=== PATIENT | female | born 1945 | race Caucasian/White ===

== ENCOUNTER → 2017-03-05 | Outpatient (CLI) | payer MEDICARE, OTHER ==
--- NOTE | 2017-03-05 12:39 | REP ---
Clinical: Lung screening. Nicotine dependence. Comparison: 11/07/2014 Technique: Axial low-dose noncontrast images from the thoracic inlet to the upper abdomen using lung screening technique. Findings: The lung [place] are well-aerated. New apical scarring is appreciated (right greater than left). Chronic subtle "tree in bud" area of opacity and plate-like scarring in the basilar right upper lobe remains stable when compared to 11/07/2014. No new consolidation, significant nodule or mass lesion is appreciated. No pleural effusion/reaction or pneumothorax. Tracheobronchial tree is patent. Mediastinum demonstrates mild atherosclerotic changes of the coronary arteries without cardiomegaly. Impression: Lung-RADS category I. Stable chronic changes are appreciated unchanged compared to 11/07/2014. No nodule or suspicious abnormality. Signed by Manohar Garcia MD 03/05/2017 12:30 P
== END ==
LOC: M RAD 11:29
PROVIDERS: ATTEND Internal Medicine Pulmonary Disease
DX: Z12.2 Encounter for screening for malignant neoplasm of respiratory organs (principal); Z87.891 Personal history of nicotine dependence; Z12.31 Encounter for screening mammogram for malignant neoplasm of breast; Z78.0 Asymptomatic menopausal state; Z92.89 Personal history of other medical treatment
CPT/HCPCS: G0202; G0297

== ENCOUNTER → 2017-03-05 | Outpatient (CLI) | payer MEDICARE, OTHER ==
--- NOTE | 2017-03-05 13:52 | REPMRS ---
Patient History The patient states she had a clinical breast exam in 2016.Patient is postmenopausal and has history of other cancer at age 63. Family history of prostate cancer in maternal grandfather at age 50 or over, breast cancer in maternal cousin at age 50 or over, and prostate cancer in brother at age 50 or over. Benign stereotactic core biopsy of the right breast, March 26, 2011. Digital Mammo Screening [place]: March 05, 2017 - Exam #: [id number] Bilateral CC and MLO view(s) were taken. Technologist: Rosa Schaefer, Technologist Prior study comparison: April 09, 2015, digital woman screen mammo, performed at [facility]. April 06, 2014, digital woman screen mammo, performed at [facility]. March 23, 2013, digital woman screen mammo, performed at [facility]. FINDINGS: There are scattered fibroglandular densities. There has been no change in the appearance of the mammogram from the prior studies. There is a mild amount of scattered fibroglandular density which is fairly symmetric. There is no interval development of dominant mass, architectural distortion, or clustered microcalcification suggestive of malignancy. ASSESSMENT: BI-RADS/ACR category 1 mammogram. Negative. Recommendation Routine screening mammogram in 1 year (for women over age 40). This mammogram was interpreted with the aid of an FDA-approved computer-aided dectection system. Electronically Signed By: Howard Franklin MD 03/05/17 [id number]
== END ==
LOC: M RAD 11:34
PROVIDERS: ATTEND Physician Assistant
DX: Z12.31 Encounter for screening mammogram for malignant neoplasm of breast (principal); Z78.0 Asymptomatic menopausal state; Z92.89 Personal history of other medical treatment

== ENCOUNTER → 2018-01-28 | Outpatient (CLI) | payer MEDICARE, OTHER | LOC: M RAD 11:10 | DX: R91.8 Other nonspecific abnormal finding of lung field (principal); J84.10 Pulmonary fibrosis, unspecified | CPT/HCPCS: 71250 ==

== ENCOUNTER → 2018-02-23 | Outpatient (CLI) | payer MEDICARE, OTHER | LOC: M WHC 11:08 | DX: M85.80 Other specified disorders of bone density and structure, unspecified site (principal); Z01.419 Encounter for gynecological examination (general) (routine) without abnormal findings (principal); Z78.0 Asymptomatic menopausal state; Z12.12 Encounter for screening for malignant neoplasm of rectum | CPT/HCPCS: 77080 ==

== ENCOUNTER 2018-02-26 16:28 | Inpatient (IN) | payer MEDICARE, OTHER ==
[2018-02-26 17:53] LABS: HEMATOCRIT 39.1 % (36.0-47.0); MEAN CORPUSCULAR HEMOGLOBIN 32.7 pg (27.0-33.0); MEAN CORPUSCULAR HGB CONC 33.2 g/dl (32.0-36.5); MEAN CORPUSCULAR VOLUME 98.2 fl (80.0-96.0); PLATELET COUNT, AUTOMATED 186 10^3/uL (150-450); RED BLOOD COUNT 3.98 10^6/uL (4.00-5.40); RED CELL DISTRIBUTION WIDTH 13.2 % (11.5-14.5); WHITE BLOOD COUNT 8.4 10^3/uL (4.0-10.0)
[2018-02-26 18:19] LABS: ANION GAP 10 MEQ/L (8-16); BLOOD UREA NITROGEN 16 MG/DL (7-18); CALCIUM LEVEL 8.6 MG/DL (8.8-10.2); CARBON DIOXIDE LEVEL 24 MEQ/L (21-32); CHLORIDE LEVEL 110 MEQ/L (98-107); CREATININE FOR GFR 0.86 MG/DL (0.55-1.30); GLOMERULAR FILTRATION RATE > 60.0 (>39); GLUCOSE, FASTING 150 MG/DL (70-100); SODIUM LEVEL 144 MEQ/L (136-145)
[2018-02-26] MEDS: NS 1,000 ML IV (18:45)
[2018-02-26] MEDS: MORPHINE 2 MG/ML 1ML SYRINGE (J2270) IV ×2 (18:46→22:36)
[2018-02-26] MEDS: CARVedilol 3.125 MG TAB PO ×2 (21:00→23:00)
[2018-02-26] MEDS: SYMBICORT 160/4.5MCG INHALER 6GM INH (21:42)
[2018-02-26] MEDS ORDERED: PREVNAR 13 VACCINE SYRINGE (CPT CODE:90670) IM (23:45)
[2018-02-27] MEDS: MORPHINE 4 MG/ML 1ML VIAL/SYRINGE (J2270) IV (02:04)
[2018-02-27] MEDS: NS 1,000 ML IV ×2 (06:09→18:39)
[2018-02-27] MEDS: TIOTROPIUM INHALER/CAPSULE (SPIRIVA) INH (07:38)
[2018-02-27] MEDS: SYMBICORT 160/4.5MCG INHALER 6GM INH ×2 (07:38→19:38)
[2018-02-27 08:14] LABS: ANION GAP 8 MEQ/L (8-16); BLOOD UREA NITROGEN 11 MG/DL (7-18); CALCIUM LEVEL 7.8 MG/DL (8.8-10.2); CARBON DIOXIDE LEVEL 26 MEQ/L (21-32); CHLORIDE LEVEL 112 MEQ/L (98-107); CREATININE FOR GFR 0.76 MG/DL (0.55-1.30); GLOMERULAR FILTRATION RATE > 60.0 (>39); GLUCOSE, FASTING 129 MG/DL (70-100); POTASSIUM SERUM 3.8 MEQ/L (3.5-5.1); SODIUM LEVEL 146 MEQ/L (136-145)
[2018-02-27] MEDS: CARVedilol 6.25 MG TAB PO ×2 (09:38→20:59)
[2018-02-27] MEDS ORDERED: MIDAZOLAM INJ 2 MG/2 ML VIAL (J2250) As Ordered ×2 (10:05→10:55)
[2018-02-27] MEDS ORDERED: fentaNYL 100 MCG/2 ML INJECTION (J3010) As Ordered ×2 (10:05→10:56)
[2018-02-27] MEDS ORDERED: dexameTHASONE 4 MG/ML 1ML VIAL (J1100) As Ordered (10:46)
[2018-02-27] MEDS ORDERED: ONDANSETRON 4MG/2ML VIAL (J2405) As Ordered (10:53)
[2018-02-27] MEDS ORDERED: LIDOCAINE 2% INJ 100 MG/5 ML SDV (FOR ANES.) As Ordered (10:53)
[2018-02-27] MEDS ORDERED: PROPOFOL 200 MG/20 ML VIAL As Ordered (10:53)
[2018-02-27] MEDS ORDERED: KETOROLAC 60 MG/2 ML VIAL (J1885) As Ordered (10:56)
[2018-02-27] MEDS: MIDAZOLAM INJ 2 MG/2 ML VIAL (J2250) IV (12:00)
[2018-02-27] MEDS: fentaNYL 100 MCG/2 ML INJECTION (J3010) IV (12:00)
[2018-02-27] MEDS: LR 1,000 ML IV (12:45)
[2018-02-27] MEDS ORDERED: fentaNYL 100 MCG/2 ML INJECTION (J3010) IV (12:45)
[2018-02-27] MEDS ORDERED: traMADol 50 MG TAB PO (12:45)
[2018-02-27] MEDS ORDERED: ONDANSETRON 4MG/2ML VIAL (J2405) IV (12:45)
[2018-02-27] MEDS ORDERED: ROPIvacaine 0.5% 30 ML INJECTION (J2795 PER 1MG) (13:34)
[2018-02-27] MEDS ORDERED: dexameTHASONE 10 MG/1 ML VIAL PRES.FREE (J1100) (13:34)
[2018-02-27] MEDS: MONTELUKAST 10 MG TAB PO (20:57)
[2018-02-27] MEDS: traMADol 50 MG TAB PO (20:58)
[2018-02-27] MEDS: ACETAMINOPHEN TAB 650MG DOSE (2X325MG) PO (20:58)
[2018-02-27] MEDS: FLUoxetine 10 MG CAP PO (20:59)
[2018-02-27] MEDS: FAMOTIDINE 20 MG TAB PO (20:59)
[2018-02-28] MEDS: SYMBICORT 160/4.5MCG INHALER 6GM INH (07:17)
[2018-02-28] MEDS: TIOTROPIUM INHALER/CAPSULE (SPIRIVA) INH (07:17)
[2018-02-28] MEDS: traMADol 50 MG TAB PO (10:14)
[2018-02-28] MEDS: CARVedilol 6.25 MG TAB PO (10:17)
[2018-02-28] MEDS: ASPIRIN 325 MG TAB PO (10:17)
== END 2018-02-28 11:45 | disposition home or self-care (01) | DRG 494 ==
LOC: M MS5PR 23:50 → M ED 16:28 → M ED INP 22:51
PROC: 0QSK04Z Reposition Left Fibula with Internal Fixation Device, Open Approach (ICD-10-PCS; principal; 2018-02-27 10:36)
PROC: 0QSH04Z Reposition Left Tibia with Internal Fixation Device, Open Approach (ICD-10-PCS; 2018-02-27 10:36)
DX: S82.842A Displaced bimalleolar fracture of left lower leg, initial encounter for closed fracture (principal); I10 Essential (primary) hypertension; J44.9 Chronic obstructive pulmonary disease, unspecified; E66.9 Obesity, unspecified; E78.5 Hyperlipidemia, unspecified; J30.2 Other seasonal allergic rhinitis; G47.33 Obstructive sleep apnea (adult) (pediatric); Z87.442 Personal history of urinary calculi; Z85.118 Personal history of other malignant neoplasm of bronchus and lung; W10.8XXA Fall (on) (from) other stairs and steps, initial encounter; Y92.838 Other recreation area as the place of occurrence of the external cause; Y93.01 Activity, walking, marching and hiking; Z90.2 Acquired absence of lung [part of]; Z79.82 Long term (current) use of aspirin; Z79.899 Other long term (current) drug therapy; Z87.891 Personal history of nicotine dependence; Z79.51 Long term (current) use of inhaled steroids

== ENCOUNTER → 2019-01-03 | Outpatient (CLI) | payer MEDICARE, OTHER ==
[~2019-01-03] MED LIST: ALBU17IN2 INH; ALLE180T33 PO; ASPI81TA85 PO; ATELTAB PO; BAYE325T12 PO; CARV12.5 PO; CARV6.25 PO; CELE1CAP9 PO; CENTCHW4 PO; DEXI60CA2 PO; GARL10004 PO; LIVA2TAB PO; PROZ10CA7 PO; SING10TA32 PO; SYMB16INH INH; TIOT18INH INH; TRAM50TA2 PO; VITA100066 PO; VITA500T PO; VITMTA PO; ZANT300T9 PO
--- NOTE | 2019-01-03 14:17 | REP ---
MRI LEFT SHOULDER: TECHNIQUE: Axial T2 fat sat, gradient echo, sagittal oblique T2 fat sat, coronal oblique T1, T2 fat sat. Supraspinatus and subscapularis tendons demonstrate mild diffuse ill-defined high signal on T2-weighted images compatible with tendinopathy/tendonitis. There is a partial undersurface tear of the anterior supraspinatus tendon. No full thickness rotator cuff tear is seen. There are mild hypertrophic degenerative changes of the acromioclavicular joint with downward sloping of the acromion. Acromion is type 1. Biceps tendon is within the bicipital groove with no tenosynovitis. There is no Hill-Sach's deformity. The deltoid muscle demonstrates no abnormal signal. There is fraying of the biceps labral complex. There is diffuse fraying of the superior labrum as well as the posterior labrum. No paralabral cyst is seen. Mild subchondral cystic changes are seen in the superolateral humeral head. Tiny amount of fluid is seen in subacromial/subdeltoid bursae. IMPRESSION: Mild supraspinatus and subscapularis tendinopathy/tendonitis. There is a partial undersurface tear of the anterior supraspinatus tendon. Mild hypertrophic degenerative changes of acromioclavicular joint with downward sloping of the acromion, which is type 1. There is fraying of the biceps labral complex. There is also diffuse fraying of the superior labrum and posterior labrum. Tiny amount of fluid is seen in the subacromial/subdeltoid bursae. Electronically Signed by Bean Naik MD 01/04/2019 09:59 A
== END ==
LOC: M RAD 11:21
PROVIDERS: ATTEND Orthopaedic Surgery Sports Medicine
DX: M19.012 Primary osteoarthritis, left shoulder (principal)

== ENCOUNTER → 2019-02-21 | Outpatient (CLI) | payer MEDICARE, OTHER ==
[~2019-02-21] MED LIST changes: -ALBU17IN2 INH; +ASPI81TA26 PO; +PLAV1TAB2 PO; +PRAL1INJ SC; +PROV108A INH
--- NOTE | 2019-02-21 17:57 | REP ---
CT of the chest without IV contrast: Comparison is 01/28/2018. The patient has history of lung carcinoma and left upper lobectomy . There are surgical clips in the left hilus. The small peribronchovascular nodules noted anteriorly in the right upper lobe previously have resolved, compatible with transient inflammatory change. The focal density noted in the left upper lung previously has resolved, compatible with transient infiltrate. There is thickening of the minor fissure. This is unchanged dating to 03/05/2017 , likely, pleural fibrosis. There are no acute infiltrates or pleural effusions. There are no new lung masses or nodules. There is no mediastinal lymph node enlargement. There are enlarged left axillary nodes, however, they have normal fatty kaylee and are unchanged from 03/05/2017, likely normal variant. In the upper abdomen there is no adrenal mass. The visualized unenhanced hepatic parenchyma is homogeneous. The gallbladder is unremarkable. There are pancreatic calcifications, possibly from prior pancreatitis. The stomach is distended with ingested content. Impression: There are no lung nodules or masses. The previous right upper lobe lung nodules have resolved, compatible with transient inflammatory change. The previous left upper lung nodule has resolved, compatible with transient infiltrate. There is chronic thickening of the minor fissure compatible with fibrosis. There are stable enlarged left axillary nodes containing fatty kaylee, likely normal variant. Electronically Signed by Bean Luis MD 02/21/2019 05:48 P
== END ==
LOC: M RAD 13:29
PROVIDERS: ATTEND Internal Medicine Pulmonary Disease
DX: R91.8 Other nonspecific abnormal finding of lung field (principal)

== ENCOUNTER 2019-02-24 20:07 | Emergency (ER) | payer MEDICARE, OTHER ==
[~2019-02-24] VITALS: Ht 152.4 cm; Wt 83.6 kg
[~2019-02-24 20:07] MED LIST changes: -ASPI81TA26 PO; -PLAV1TAB2 PO; -PRAL1INJ SC
[2019-02-24] MEDS ORDERED: NITROGLYCERIN 2% OINT 1 GM *U/D* PKT TOP ONE (20:30)
[2019-02-24] MEDS ORDERED: GI COCKTAIL 50ML BTL(HYOSCYAMINE/MAALOX/LIDOCAINE VISCOUS)(1:3:1) PO ONE (20:30)
[2019-02-24] MEDS ORDERED: ONDANSETRON 4MG/2ML VIAL (J2405) As Ordered ONE (20:41)
[2019-02-24] MEDS ORDERED: ONDANSETRON 4MG/2ML VIAL (J2405) IV ONE (20:45)
[2019-02-24 21:24] LABS: BASO # 0.1 10^3/uL (0.0-0.2); BASO % 0.6 % (0.0-1.0); EOS # 0.3 10^3/uL (0.0-0.50); HEMOGLOBIN 12.8 g/dl (12.0-15.5); LYMPH # 2.5 10^3/uL (1.5-4.5); LYMPH % 29.5 % (24.0-44.0); MEAN CORPUSCULAR HGB CONC 32.8 g/dl (32.0-36.5); MEAN CORPUSCULAR VOLUME 100.5 fl (80.0-96.0); MONO # 0.6 10^3/uL (0.0-0.8); MONO % 6.9 % (0.0-5.0); NEUTROPHILS % 59.5 % (36.0-66.0); PLATELET COUNT, AUTOMATED 193 10^3/uL (150-450); RED BLOOD COUNT 3.88 10^6/uL (4.00-5.40); WHITE BLOOD COUNT 8.4 10^3/uL (4.0-10.0)
--- NOTE | 2019-02-24 21:33 | ECGEPIP ---
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
[2019-02-24 21:34] LABS: INR 1.03; PROTHROMBIN TIME 13.2 SECONDS (11.8-14.0)
[2019-02-24 21:35] LABS: PARTIAL THROMBOPLASTIN TIME 26.1 SECONDS (25.0-38.4)
[2019-02-24 21:37] LABS: D-DIMER QUANT 2430.72 ng/ml (<500)
[2019-02-24] MEDS: MORPHINE 2 MG/ML 1ML SYRINGE (J2270) IV PRN ×2 (21:48→23:16)
[2019-02-24 21:53] LABS: ALBUMIN 3.5 GM/DL (3.2-5.2); ALT/SGPT 22 U/L (12-78); BILIRUBIN,DIRECT 0.2 MG/DL (0.0-0.2); BILIRUBIN,TOTAL 0.5 MG/DL (0.2-1.0); BLOOD UREA NITROGEN 13 MG/DL (7-18); CARBON DIOXIDE LEVEL 29 MEQ/L (21-32); CHLORIDE LEVEL 105 MEQ/L (98-107); CK-MB VALUE MASS 1.6 NG/ML (<3.6); CPK CREATINE PHOSPHOKINASE 94 U/L (26-192); CREATININE FOR GFR 0.78 MG/DL (0.55-1.30); FREE T4 0.98 NG/DL (0.76-1.46); GLOMERULAR FILTRATION RATE > 60.0 (>39); GLUCOSE, FASTING 159 MG/DL (70-100); LIPASE 90 U/L (73-393); NT-PRO BNP 134 PG/ML (<125); POTASSIUM SERUM 4.1 MEQ/L (3.5-5.1); SODIUM LEVEL 143 MEQ/L (136-145); TOTAL PROTEIN 6.8 GM/DL (6.4-8.2); TROPONIN I 0.61 NG/ML (< 0.10)
[2019-02-24] MEDS ORDERED: ISOVUE-370 76% 100ML VIAL (Q9967) As Ordered ONE (22:17)
[2019-02-24 23:59] LABS: CK-MB VALUE MASS 3.2 NG/ML (<3.6); MB/CK RELATIVE INDEX 3.05 (< OR =4); TROPONIN I 1.06 NG/ML (< 0.10)
--- NOTE | 2019-02-25 00:27 | REPVR ---
EXAM: CT Abdomen and Pelvis With Contrast EXAM DATE/TIME: 02/24/2019 10:51 PM CLINICAL HISTORY: 73 years old, female; Vomiting; Abdominal pain; Generalized; Additional info: Vomiting/abd pain TECHNIQUE: Imaging protocol: Computed tomography of the abdomen and pelvis with intravenous contrast. Radiation optimization: All CT scans at this facility use at least one of these dose optimization techniques: automated exposure control; mA and/or kV adjustment per patient size (includes targeted exams where dose is matched to clinical indication); or iterative reconstruction. Contrast material: ISOVUE 370; Contrast volume: 100 ml; Contrast route: IV; COMPARISON: No relevant prior studies available. FINDINGS: Liver: Diffuse fatty infiltration of liver with areas of focal fatty sparing. Gallbladder and bile ducts: Normal. No calcified stones. No ductal dilation. Pancreas: Normal. No ductal dilation. Spleen: Normal. No splenomegaly. Adrenals: Normal. No mass. Kidneys and ureters: Normal. No hydronephrosis. Stomach and bowel: Normal. No obstruction. No mucosal thickening. Appendix: No evidence of appendicitis. Intraperitoneal space: Normal. No free air. No significant fluid collection. Vasculature: Atherosclerosis. Pelvic varices. No abdominal aortic aneurysm. Lymph nodes: Normal. No enlarged lymph nodes. Bladder: Unremarkable as visualized. Reproductive: Unremarkable as visualized. Bones/joints: No acute fracture. No dislocation. Soft tissues: Unremarkable. IMPRESSION: Diffuse fatty infiltration of liver with areas of focal fatty sparing. No acute findings. Electronically signed by: Catherine Reyes On 02/25/2019 00:27:09 AM
--- NOTE | 2019-02-25 00:37 | REPVR ---
EXAM: CT Angiography Chest With Contrast EXAM DATE/TIME: 02/24/2019 10:51 PM CLINICAL HISTORY: 73 years old, female; Chest pain; Type not specified TECHNIQUE: Imaging protocol: Computed tomographic angiography of the chest with intravenous contrast. 3D rendering: MIP reconstructed images were created and reviewed. Radiation optimization: All CT scans at this facility use at least one of these dose optimization techniques: automated exposure control; mA and/or kV adjustment per patient size (includes targeted exams where dose is matched to clinical indication); or iterative reconstruction. Contrast material: ISOVUE 370; Contrast volume: 100 ml; Contrast route: IV; COMPARISON: CT Chest without contrast 02/21/2019 2:02 PM FINDINGS: Pulmonary arteries: Normal. No pulmonary emboli. Aorta: Unremarkable. No aortic aneurysm. No aortic dissection. Thyroid: Unremarkable. Lungs: Mild tree in bud appearance in the right upper lobe may represent pneumonitis. Mild ground glass densities bilaterally likely mild edema. No focal consolidation. The patient has history of lung carcinoma and left upper lobectomy with mild mediastinum shift to the left, stable. There are surgical clips in the left hilus. 3 mm nodule in the right upper lobe. 3.4 mm nodule in the left lung base, stable. Followup in 3 months is recommended. Pleural space: There is thickening of the minor fissure, stable, likely, pleural fibrosis. . No pneumothorax. No pleural effusion. Heart: Unremarkable. No cardiomegaly. No pericardial effusion. Diaphragm: Elevation of right hemidiaphragm. Lymph nodes: Unremarkable. No enlarged lymph nodes. Bones/joints: Degenerative changes. Diffuse demineralization of the bones. No acute fracture. Soft tissues: Unremarkable. IMPRESSION: No evidence of pulmonary embolism. Mild tree in bud appearance in the right upper lobe may represent pneumonitis. Mild ground glass densities bilaterally likely mild edema. No focal consolidation. 3 mm nodule in the right upper lobe. 3.4 mm nodule in the left lung base, stable. Followup in 3 months is recommended. There is thickening of the minor fissure, stable, likely, pleural fibrosis. Electronically signed by: Catherine Reyes On 02/25/2019 00:37:17 AM
[2019-02-25] MEDS ORDERED: HEPARIN DRIP 25,000 UNITS in APPROPRIATE DILUENT 1 EA IV SCH (00:48)
[2019-02-25] MEDS ORDERED: HEPARIN SOD (PORCINE) 5000 UNITS/ML VIAL IV ONE (01:00)
[2019-02-25] MEDS ORDERED: NITROGLYCERIN 2% OINT 1 GM *U/D* PKT TOP ONE (01:00)
[2019-02-25] MEDS ORDERED: CLOPIDOGREL 300 MG TAB (PLAVIX) PO STA (01:14)
[2019-02-25] MEDS: METOPROLOL 5 MG/5 ML VIAL IV SCH ×3 (01:20→01:38)
[2019-02-25 01:38] VITALS: BP 127/67
[2019-02-25 01:57] VITALS: BP 133/65
--- NOTE | 2019-02-25 07:55 | REP ---
Portable chest, 08:46 p.m., single AP view with the patient sitting: Comparison is a chest CT of 01/28/[address] of 02/21/2019. The. The patient is a history of lung carcinoma and left upper lobectomy. There are left hilar/suprahilar surgical clips. These are unchanged. There is a chronic parenchymal scar in the right mid lung, unchanged. Lung [place] otherwise clear. Cardiac size is normal. The right hilus, mediastinum and skeletal structures are otherwise unremarkable. Impression: There are no acute cardiopulmonary findings. There is a chronic parenchymal scar in the right mid lung. There are surgical clips in the left breast /suprahilar area. Electronically Signed by Bean Luis MD 02/25/2019 07:47 A
--- NOTE | 2019-02-25 08:21 | ECGEPIP ---
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
== END 2019-02-25 02:06 | disposition short-term general hospital (02) ==
LOC: M ED 20:07
DX: I21.4 Non-ST elevation (NSTEMI) myocardial infarction (principal); I11.9 Hypertensive heart disease without heart failure; E78.5 Hyperlipidemia, unspecified; J44.9 Chronic obstructive pulmonary disease, unspecified; G47.33 Obstructive sleep apnea (adult) (pediatric); Z87.891 Personal history of nicotine dependence; Z79.899 Other long term (current) drug therapy; Z79.82 Long term (current) use of aspirin
CPT/HCPCS: 71045; 71275; 74177; 80048; 80076; 82550; 82553; 83690; 83880; 84439; 84443; 84484; 85025; 85379; 85610; 85730; 86140; 87040; 93005; 93041; 94760; 96374; 96375; 96376; 99285; J2270; J2405; Q9967

== ENCOUNTER → 2019-03-04 | Outpatient (CLI) | payer MEDICARE, OTHER ==
--- NOTE | 2019-03-04 14:12 | REP ---
BILATERAL MAMMOGRAM WITH 3D TOMOSYNTHESIS: Family history of breast cancer over age 50 in a maternal cousin. [facility] lifetime risk of breast cancer 5.0%. COMPARISON: 03/05/2017 as well as other prior exams. Mild scattered fibroglandular tissue is again seen bilaterally. A new 4 mm well circumscribed nodule is seen in the inferolateral left breast. No other new mass or clustered microcalcifications are seen. A clip is again see in the upper outer quadrant of the right breast from a prior benign stereotactic biopsy in 2010. IMPRESSION: BIRADS 0: BI-RADS/ACR category 0 mammogram, Incomplete: Need additional imaging evaluation and/or prior mammograms for comparison. ACR 0 incomplete. New 4 mm well circumscribed nodule inferolateral left breast. Recommend spot compression views and ultrasound to further evaluate. This mammogram was interpreted with the aid of an FDA-approved computer-aided detection system. A. Negative x-ray reports should not delay biopsy if a dominant or clinically suspicious mass is present. B. Four to eight percent of cancers are not identified by x-ray. C. Adenosis and dense breasts may obscure an underlying neoplasm. The patient states she/he had a clinical breast exam in February 2019. The patient letter being requested is M0
== END ==
LOC: M WHC 11:15
PROVIDERS: ATTEND Nurse Practitioner Family
DX: Z12.31 Encounter for screening mammogram for malignant neoplasm of breast (principal); N63.20 Unspecified lump in the left breast, unspecified quadrant
CPT/HCPCS: 77063; 77067; G0463

== ENCOUNTER → 2019-03-15 | Outpatient (CLI) | payer MEDICARE, OTHER ==
[~2019-03-15] MED LIST changes: +ASPI81TA26 PO; +PLAV1TAB2 PO; +PRAL1INJ SC
--- NOTE | 2019-03-15 14:16 | REP ---
DIAGNOSTIC MAMMOGRAM OF THE LEFT BREAST WITH LEFT BREAST ULTRASOUND: Multiple spot compression views left breast performed and correlated with the recent mammogram of 03/04/2019 which showed a possible new 4 mm nodule laterally in the left breast. Today's spot compression views confirm the presence of a fairly well circumscribed 4 mm nodule laterally in the left breast. Real-time sonographic evaluation of the lateral left breast demonstrates a hypoechoic nodule at the 3-o'clock position. There is internal blood flow with Doppler evaluation. Therefore, this appears to be solid. IMPRESSION: BIRADS 4: BI-RADS/ACR category 4 mammogram. Suspicious Abnormality - biopsy should be considered. New 4 mm nodule lateral left breast appears to be solid by ultrasound demonstrating some internal blood flow with Doppler evaluation. Recommend ultrasound-guided biopsy and postprocedure mammogram. Patient letter to be given M4. Electronically Signed by Bean Naik MD 03/16/2019 10:20 A
== END ==
LOC: M RAD 11:41
PROVIDERS: ATTEND Nurse Practitioner Family
DX: R92.2 Inconclusive mammogram (principal); N63.21 Unspecified lump in the left breast, upper outer quadrant
CPT/HCPCS: 76642; 77065; G0279

== ENCOUNTER → 2019-03-31 | Outpatient (CLI) | payer MEDICARE, OTHER ==
[~2019-03-31] MED LIST changes: +LIDOCAINE 1% MDV 20ML VIAL As Ordered ONE
[2019-03-31 14:44] VITALS: BP 156/78
--- NOTE | 2019-03-31 16:26 | REP ---
POST BIOPSY MAMMOGRAM LEFT BREAST: Following ultrasound guided biopsy of a nodule in the outer left breast, post biopsy mammography performed in the ML and CC projections. Metallic clip is seen at the site of the previously noted 4 mm nodule laterally in the left breast, marking the site of the biopsy. This confirms that the nodule on the mammogram corresponds to the nodule seen by ultrasound. Electronically Signed by Bean Naik MD 03/31/2019 06:03 P
--- NOTE | 2019-03-31 17:42 | REP ---
ULTRASOUND GUIDED LEFT BREAST BIOPSY The procedure was performed under the direct supervision of Dr. Naik The patient has a history of eight 4 mm hypoechoic nodule in the 3 o'clock position of the left breast seen on a previous ultrasound dated 03/15/2019. The risks and benefits of the procedure were explained to the patient and informed consent was obtained. The left breast nodule was localized using ultrasound guidance. The skin was prepped and draped in a sterile fashion. 1% Xylocaine was used as a local anesthetic. Using ultrasound guidance an 18 gauge biopsy needle was inserted and seven core biopsy samples were obtained. A marker clip was placed at the biopsy site. The patient tolerated the procedure well and there were no immediate complications. After the appropriate amount of monitored convalescence the patient was discharged from the department. Electronically Signed by OLY Guerrero 03/31/2019 04:13 P Electronically Signed by Bean Naik MD 03/31/2019 05:32 P
== END ==
LOC: M IRPRO 13:13
PROVIDERS: ATTEND Surgery
DX: D24.2 Benign neoplasm of left breast (principal); R92.8 Other abnormal and inconclusive findings on diagnostic imaging of breast; Z79.82 Long term (current) use of aspirin; Z79.899 Other long term (current) drug therapy

== ENCOUNTER → 2020-03-28 | Outpatient (CLI) | payer MEDICARE, OTHER ==
[~2020-03-28] MED LIST changes: -ASPI81TA85 PO; +ASPI81TA86 PO; -LIDOCAINE 1% MDV 20ML VIAL As Ordered ONE; +VITA-243 PO; -VITA500T PO
--- NOTE | 2020-03-28 13:07 | REPMRS ---
Patient History The patient states she had a clinical breast exam in 02/2020. Patient is postmenopausal and has history of lung cancer at age 63. Family history of prostate cancer at age 50 or over in maternal grandfather, breast cancer at age 50 or over in maternal cousin, prostate cancer at age 50 or over in brother. Benign US guided breast biopsy of the left breast, March 31, 2019. Benign stereotactic core biopsy of the right breast, March 26, 2011. No Hormone Replacement Therapy 3D TOMOSYNTHESIS WAS PERFORMED. The [facility] lifetime risk for breast cancer is 4.6%. Volpara density b. Digital Woman Screen Mammo: March 28, 2020 - Exam #: [id number] Bilateral CC and MLO view(s) were taken. Technologist: Dona Lewis, Technologist Prior study comparison: March 31, 2019, left breast digital mammo diagnostic unilateral, performed at [facility]. March 15, 2019, left breast digital mammo diagnostic unilateral, performed at [facility]. FINDINGS: There are scattered fibroglandular densities. There has been no change in the appearance of the mammogram from the prior studies. There is a mild amount of residual fibroglandular tissue which is fairly symmetric. There is no interval development of dominant mass, architectural distortion, or clustered microcalcification suggestive of malignancy. Assessment: BI-RADS/ACR category 1 mammogram. Negative Mammogram. Recommendation Routine screening mammogram in 1 year (for women over age 40). This mammogram was interpreted with the aid of an FDA-approved computer-aided dectection system. Electronically Signed By: Bean Naik MD 03/28/20 [id number]
--- NOTE | 2020-04-05 14:04 | DEXA ---
AP SPINE L1 - L4 1.135 -0.5 1.2 LT FEMUR TOTAL 0.815 -1.5 0.1 LT NECK 0.707 -2.4 -0.5 RT FEMUR TOTAL 0.819 -1.5 0.1 RT NECK 0.729 -2.2 -0.4 TOTAL BODY TOTAL OTHER COMMENTS: Normal bone densitometry of the spine. There is low bone density of the hips. The density of the spine is increased 6.1% since the initial exam on 04/04/2004. The increased 2.6% since the most recent exam on 02/23/2018. The density of the left hip has increased 4.2% since the initial exam on 04/04/2004. The density of the left hip has decreased 5.0% since the most recent exam on 02/23/2018. The density of the right hip has increased 4.5% since the initial exam on 04/04/2004. The density of the right hip has decreased 0.8% since the most recent exam on 02/15/2018. FOLLOW-UP: Recommendation for the next bone density exam: 2 years. ERICK
== END ==
LOC: M WHC 11:00
PROVIDERS: ATTEND Nurse Practitioner Family
DX: Z01.411 Encounter for gynecological examination (general) (routine) with abnormal findings (principal); Z12.31 Encounter for screening mammogram for malignant neoplasm of breast; M85.80 Other specified disorders of bone density and structure, unspecified site; Z78.0 Asymptomatic menopausal state; Z85.118 Personal history of other malignant neoplasm of bronchus and lung; Z80.42 Family history of malignant neoplasm of prostate; Z86.018 Personal history of other benign neoplasm
CPT/HCPCS: 77063; 77067; 77080; G0101

== ENCOUNTER → 2021-01-17 | Outpatient (CLI) | payer MEDICARE, OTHER ==
[~2021-01-17] MED LIST changes: +ALIR75PE3 SC; +LIDOCAINE 1% MDV 20ML VIAL As Ordered ONE; -PRAL1INJ SC; +methylPREDNISolone 80MG/ML SUSP 1ML VIAL (J1040) As Ordered ONE; +methylPREDNISolone SUSP 40MG/ML 1ML VIAL (DEPO MEDROL) As Ordered ONE
--- NOTE | 2021-01-17 16:52 | REP ---
INDICATION: LT BICIPITAL TENDINITIS. COMPARISON: None. TECHNIQUE: The procedure was performed under the direct supervision of Dr. Naik. The risks and benefits of the procedure were explained to the patient and informed consent was obtained. The left biceps tendon sheath was localized using ultrasound guidance. The skin was prepped and draped in a sterile fashion. 1% lidocaine was used as a local anesthetic. Using ultrasound guidance a 25 gauge needle was inserted and advanced into the tendon sheath. 3 cc of a solution containing 2 cc of 1% lidocaine and 1 cc of Depo-Medrol 40 mg was injected. The needle was then removed. The patient tolerated the procedure well and there were no immediate complications. FINDINGS: None IMPRESSION: Ultrasound-guided left biceps tendon sheath injection. <Electronically signed by Gray Cid > 01/17/21 0830 <Electronically signed by Bean Naik > 01/17/21 1229
== END ==
LOC: M IRPRO 12:12
PROVIDERS: ATTEND Physician Assistant
DX: M75.22 Bicipital tendinitis, left shoulder (principal)
CPT/HCPCS: 20550; 76942; J1030

== ENCOUNTER → 2021-12-19 | Outpatient (CLI) | payer MEDICARE, OTHER ==
[~2021-12-19] MED LIST changes: -LIDOCAINE 1% MDV 20ML VIAL As Ordered ONE; -methylPREDNISolone 80MG/ML SUSP 1ML VIAL (J1040) As Ordered ONE; -methylPREDNISolone SUSP 40MG/ML 1ML VIAL (DEPO MEDROL) As Ordered ONE
== END ==
LOC: M RAD 15:00
PROVIDERS: ATTEND Internal Medicine Pulmonary Disease
DX: Z12.2 Encounter for screening for malignant neoplasm of respiratory organs (principal); Z87.891 Personal history of nicotine dependence; R92.8 Other abnormal and inconclusive findings on diagnostic imaging of breast

== ENCOUNTER → 2022-01-09 | Outpatient (CLI) | payer MEDICARE | LOC: M PLARAD 15:29 | PROVIDERS: ATTEND Internal Medicine Pulmonary Disease | DX: R91.8 Other nonspecific abnormal finding of lung field (principal); Z85.118 Personal history of other malignant neoplasm of bronchus and lung | CPT/HCPCS: 78815; A9552 ==

== ENCOUNTER → 2022-02-19 | Outpatient (CLI) | payer MEDICARE ==
[~2022-02-19] MED LIST changes: +ALBU6.7H6 INH; -PROV108A INH
== END ==
LOC: M SLEEP 20:00
PROVIDERS: ATTEND Internal Medicine Pulmonary Disease
DX: G47.33 Obstructive sleep apnea (adult) (pediatric) (principal); G47.61 Periodic limb movement disorder

== ENCOUNTER → 2022-03-17 | Outpatient (CLI) | payer MEDICARE | LOC: M WHC 13:54 | PROVIDERS: ATTEND Nurse Practitioner Family | DX: Z12.31 Encounter for screening mammogram for malignant neoplasm of breast (principal) ==

== ENCOUNTER → 2022-04-01 | Outpatient (CLI) | payer MEDICARE | LOC: M RAD 16:59 | PROVIDERS: ATTEND Internal Medicine Pulmonary Disease | DX: R91.8 Other nonspecific abnormal finding of lung field (principal); I70.0 Atherosclerosis of aorta; I25.10 Atherosclerotic heart disease of native coronary artery without angina pectoris ==

== ENCOUNTER → 2022-04-09 | Outpatient (CLI) | payer MEDICARE | LOC: M WHC 13:58 | PROVIDERS: ATTEND Nurse Practitioner Family | DX: Z13.820 Encounter for screening for osteoporosis (principal); M85.851 Other specified disorders of bone density and structure, right thigh; M85.852 Other specified disorders of bone density and structure, left thigh ==

== ENCOUNTER → 2023-04-06 | Outpatient (CLI) | payer MEDICARE ==
[~2023-04-06] MED LIST changes: +CELE0.09 PO; -CELE1CAP9 PO; +CLOP75TA99 PO; +MONT-5 PO; -PLAV1TAB2 PO; -SING10TA32 PO
== END ==
LOC: M RAD 10:40
PROVIDERS: ATTEND Internal Medicine Pulmonary Disease
DX: Z12.2 Encounter for screening for malignant neoplasm of respiratory organs (principal); Z87.891 Personal history of nicotine dependence; R91.8 Other nonspecific abnormal finding of lung field

== ENCOUNTER → 2023-04-13 | Outpatient (CLI) | payer MEDICARE ==
[~2023-04-13] MED LIST changes: +B-12100010 SC; +CALC600T60 PO; +CVS55SPR; +FAMO1TAB11 PO; +FLUO10CA18 PO; +FLUT1BLS8 INH; +LISI20TA33 PO; +MELO7.5T35 PO; +METF500T13 PO; +PREDOPD OS; +REPA140I2 SC; +VITA100093 PO
[2023-04-13 17:14] LABS: HEMATOCRIT 37.4 % (36.0-47.0); HEMOGLOBIN 12.6 g/dl (12.0-15.5); MEAN CORPUSCULAR HEMOGLOBIN 35.3 pg (27.0-33.0); MEAN CORPUSCULAR HGB CONC 33.7 g/dl (32.0-36.5); MEAN CORPUSCULAR VOLUME 104.8 fl (80.0-96.0); PLATELET COUNT, AUTOMATED 205 10^3/uL (150-450); RED BLOOD COUNT 3.57 10^6/uL (4.00-5.40); WHITE BLOOD COUNT 8.2 10^3/uL (4.0-10.0)
[2023-04-13 17:30] LABS: INR 1.06; PROTHROMBIN TIME 13.5 SECONDS (12.5-14.5)
[2023-04-13 17:31] LABS: PARTIAL THROMBOPLASTIN TIME 25.2 SECONDS (24.8-34.2)
[2023-04-13 17:34] LABS: CALCIUM LEVEL 8.9 MG/DL (8.3-10.6); CREATININE FOR GFR 0.97 MG/DL (0.55-1.30); GLOMERULAR FILTRATION RATE 59.4 (>39); POTASSIUM SERUM 4.6 MMOL/L (3.5-5.1)
== END ==
LOC: M PLALAB 15:44
PROVIDERS: ATTEND Internal Medicine Pulmonary Disease
DX: R91.1 Solitary pulmonary nodule (principal); Z79.01 Long term (current) use of anticoagulants

== ENCOUNTER 2023-04-22 06:15 | Day surgery (SDC) | payer MEDICARE ==
[~2023-04-22] VITALS: Ht 152.4 cm; Wt 77.8 kg
[~2023-04-22 06:15] MED LIST changes: +ALBUTEROL SULFATE 2.5MG/0.5ML INH NEB SOLN INH ONE; +LIDOCAINE PRES-FREE 2% 10ML AMP INH ONE
[2023-04-22] MEDS ORDERED: INSULIN LISPRO (NovoLOG) PER UNIT SC PRN ×2 (07:05→08:50)
[2023-04-22] MEDS ORDERED: SUGAMMADEX SODIUM 500 MG/5 ML VIAL (BRIDION) As Ordered ONE (07:12)
[2023-04-22] MEDS ORDERED: LIDOCAINE 2% 100MG/5ML SDV (FOR ANES.) As Ordered ONE (07:12)
[2023-04-22] MEDS ORDERED: ONDANSETRON 4MG 2ML VIAL As Ordered ONE (07:12)
[2023-04-22] MEDS ORDERED: fentaNYL 100 MCG/2 ML INJECTION As Ordered ONE (07:12)
[2023-04-22] MEDS ORDERED: ROCURONIUM BROMIDE 50MG/5ML VIAL As Ordered ONE (07:12)
[2023-04-22] MEDS ORDERED: propofoL 200 MG/20 ML VIAL As Ordered ONE (07:12)
[2023-04-22] MEDS ORDERED: CETACAINE SPRAY 5GM As Ordered ONE (07:19)
[2023-04-22] MEDS ORDERED: THROMBIN 5,000 UNITS VIAL As Ordered ONE (07:19)
[2023-04-22] MEDS ORDERED: EPINEPHrine 1MG/10ML SYRINGE 1.5IN As Ordered ONE (07:20)
[2023-04-22] MEDS ORDERED: ESMOLOL INJ 100MG/10ML VIAL As Ordered ONE (08:45)
[2023-04-22] MEDS ORDERED: fentaNYL 100 MCG/2 ML INJECTION IV PRN (08:50)
[2023-04-22] MEDS ORDERED: oxyCODONE 5MG TAB PO PRN (08:50)
[2023-04-22] MEDS ORDERED: ONDANSETRON 4MG 2ML VIAL IV PRN (08:50)
[2023-04-22] MEDS ORDERED: HYDROMORPHONE HCL 0.5 MG/ 0.5 ML SYRINGE IV PRN (08:50)
[2023-04-22] MEDS ORDERED: IPRATROPIUM 0.5MG/ALBUTEROL 2.5MG INH SOL UD 3ML (DUONEB) As Ordered ONE (09:25)
[2023-04-22] MEDS ORDERED: IPRATROPIUM 0.5MG/ALBUTEROL 2.5MG INH SOL UD 3ML (DUONEB) NEB ONE (09:25)
[2023-04-22 10:54] VITALS: BP 166/86; TEMP 98.1; O2SAT 94
== END 2023-04-22 10:54 | disposition home or self-care (01) ==
LOC: M SDC 06:15
PROVIDERS: ATTEND Internal Medicine Pulmonary Disease
DX: J84.10 Pulmonary fibrosis, unspecified (principal); J98.4 Other disorders of lung; J44.9 Chronic obstructive pulmonary disease, unspecified; Z90.2 Acquired absence of lung [part of]; Z85.118 Personal history of other malignant neoplasm of bronchus and lung; E11.9 Type 2 diabetes mellitus without complications; E78.00 Pure hypercholesterolemia, unspecified; G47.33 Obstructive sleep apnea (adult) (pediatric); Z79.899 Other long term (current) drug therapy; Z79.84 Long term (current) use of oral hypoglycemic drugs; Z79.82 Long term (current) use of aspirin; Z79.51 Long term (current) use of inhaled steroids; Z87.891 Personal history of nicotine dependence; Z88.8 Allergy status to other drugs, medicaments and biological substances
CPT/HCPCS: 31623; 31624; 31627; 31628; 71045; 76000; 87070; 87071; 87102; 87116; 87186; 87205; 87206; 88305; J0171; J1100; J1805; J2405; J3010

== ENCOUNTER → 2023-12-07 | Outpatient (CLI) | payer MEDICARE ==
[~2023-12-07] MED LIST changes: -ALBUTEROL SULFATE 2.5MG/0.5ML INH NEB SOLN INH ONE; +FLUO-290 PO; -FLUO10CA18 PO; -LIDOCAINE PRES-FREE 2% 10ML AMP INH ONE
== END ==
LOC: M PLAIMG 10:49
PROVIDERS: ATTEND Internal Medicine Pulmonary Disease
DX: R91.8 Other nonspecific abnormal finding of lung field (principal); I25.10 Atherosclerotic heart disease of native coronary artery without angina pectoris; I70.0 Atherosclerosis of aorta

== ENCOUNTER → 2024-02-04 | Outpatient (CLI) | payer MEDICARE | LOC: M WHC 14:04 | PROVIDERS: ATTEND Nurse Practitioner Family | DX: Z12.31 Encounter for screening mammogram for malignant neoplasm of breast (principal) ==

== ENCOUNTER → 2024-03-31 | Outpatient (CLI) | payer MEDICARE | LOC: M RAD 10:31 | PROVIDERS: ATTEND Internal Medicine Pulmonary Disease | DX: A31.0 Pulmonary mycobacterial infection (principal); I25.10 Atherosclerotic heart disease of native coronary artery without angina pectoris; R91.8 Other nonspecific abnormal finding of lung field; J98.11 Atelectasis ==